=== PATIENT | female | born 1980 | race Two or more races ===

== ENCOUNTER 2025-05-07 08:42 | Outpatient (CLI) | payer OTHER ==
[~2025-05-07 08:42] MED LIST: FOLIC ACID0.4 MG
== END 2025-05-07 08:46 | disposition home or self-care (01) ==
LOC: SONOGRAMA 08:42
PROVIDERS: ATTEND Pathology Anatomic Pathology
DX: D34 Benign neoplasm of thyroid gland (principal); E07.89 Other specified disorders of thyroid; C73 Malignant neoplasm of thyroid gland